=== PATIENT | male | born 1995 | race American Indian/Alaskan Native ===

== ENCOUNTER 2018-05-20 00:55 | Emergency (ER) | payer OTHER ==
[2018-05-20] MEDS ORDERED: IBUPROFEN PO ONE (01:13)
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
[2018-05-20 07:19] VITALS: BP 130/71
== END 2018-05-20 02:00 | disposition home or self-care (01) ==
LOC: ED 00:55
DX: R07.89 Other chest pain (principal); V59.19XA Passenger in pick-up truck or van injured in collision with other motor vehicles in nontraffic accident, initial encounter; Y93.89 Activity, other specified; Y92.39 Other specified sports and athletic area as the place of occurrence of the external cause; Y99.8 Other external cause status
CPT/HCPCS: 71046; 72040; 99283